=== PATIENT | female | born 1995 | race Caucasian/White ===

== ENCOUNTER 2016-07-07 17:43 | Emergency (ER) | payer OTHER ==
[~2016-07-07] VITALS: Ht 165.1 cm; Wt 57.8 kg
[2016-07-07 17:51] VITALS: BP 111/71; PULSE 94; RESP 16; TEMP 98.8; O2SAT 100
[2016-07-07] MEDS ORDERED: KETOROLAC TROMETHAMINE 60 MG/2 ML (IM) VIAL IM ONE (18:15)
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
[2016-07-07] MEDS ORDERED: IBUPROFEN 800 MG TAB PO ONE (18:30)
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
[2016-07-07] MEDS ORDERED: IBUP800T23 PO (18:48)
== END 2016-07-07 19:11 | disposition home or self-care (01) ==
LOC: PHEFT 17:43
DX: S93.602A Unspecified sprain of left foot, initial encounter (principal); S90.811A Abrasion, right foot, initial encounter; V18.0XXA Pedal cycle driver injured in noncollision transport accident in nontraffic accident, initial encounter; Y93.55 Activity, bike riding; Y92.9 Unspecified place or not applicable; Y99.9 Unspecified external cause status
CPT/HCPCS: 73630; 99283